=== PATIENT | female | born 1960 | race Caucasian/White ===

== ENCOUNTER 2020-11-16 17:24 | Emergency (ER) | payer BC, OTHER ==
[~2020-11-16] VITALS: Ht 162.6 cm; Wt 64.8 kg
--- NOTE | 2020-11-16 19:20 | NUR ---
ratoprinter: Pt walked back from lobby to room at this time. Steady upon ambulation. No acute distress noted.
--- NOTE | 2020-11-16 19:30 | NUR ---
PT AMBULATED TO ROOM FROM [facility]. PT STATED THAT YESTERDAY SHE NOTICED THAT HER LEFT INDEX FINGER WENT WHITE AND NUMB. IT RESOLVED AFTER ABOUT 30 MINUTES, BUT HAPPENED AGAIN TWICE TODAY. PT STATED THAT SHE IS ALSO FEELING SOME TINGLING IN HER LEFT FOREARM AND THUMB TODAY. PT DENIES ANY HISTORY OF THIS HAPPENING OR ANY RECENT TRAUMA OR PAIN/SWELLING IN ARM.
[2020-11-16 20:00] VITALS: BP 148/75
--- NOTE | 2020-11-16 20:29 | NUR ---
PT RESTING IN [place] COMFORTABLY. CALL LIGHT WITHIN REACH.
--- NOTE | 2020-11-16 21:00 | NUR ---
DISCHARGE INSTRUCTIONS REVIEWED WITH PT. ALL QUESTIONS ANSWERED AT THIS TIME.
== END 2020-11-16 21:02 | disposition home or self-care (01) ==
LOC: ED 19:30
DX: I73.00 Raynaud's syndrome without gangrene (principal)
CPT/HCPCS: 99281